=== PATIENT | male | born 1950 | race Caucasian/White ===

== ENCOUNTER 2019-09-05 11:03 | Emergency (ER) | payer MEDICARE, MEDICAID ==
[2019-09-05 12:24] LABS: CHLORIDE,CL 101 mmol/L (98-107); SODIUM,NA 138 mmol/L (136-145)
--- NOTE | 2019-09-05 12:36 | EDM.PDOC ---
ED HPI GENERAL MEDICAL PROBLEM - General Chief Complaint: General Stated Complaint: C/O Not feeling well Time Seen by Provider: 09/05/19 11:05 Source of Information: Reports: Patient, Custodial Records History Limitations: Reports: No Limitations - History of Present Illness INITIAL COMMENTS - FREE TEXT/NARRATIVE: Pt presents to ER from [place] home States he just does feel well No specific complaints NH states he was confused but in ER patient is alert and oriented No focal complaints No fever No N/V/D No chest pain No dysuria NO SOB No cough Onset: Gradual Location: Reports: Generalized - Related Data Allergies Allergy/AdvReac Type Severity Reaction Status Date / Time NSAIDS (Non-Steroidal Allergy Cannot Verified 09/05/19 11:14 Anti-Inflamma Remember Home Meds: Home Meds Acetaminophen [Tylenol Extra Strength] 1,000 mg PO BID@699,189909/05/19 [ History] Acetaminophen [Tylenol] 650 mg PO DAILY PRN 09/05/19 [History] Aspirin [Halfprin] 81 mg PO DAILY@189909/05/19 [History] Clopidogrel Bisulfate [Plavix] 75 mg PO DAILY@69909/05/19 [History] Fish Oil/[place]-3 Fatty Acids [Fish Oil 1,000 MG] 2,000 mg PO DAILY@699 [History] Ketoconazole [Ketoconazole 2%] 1 applic TOP ASDIRECTED 09/05/19 [History] Ketoconazole [Nizoral 2% Crm] 1 applic TOP ASDIRECTED PRN 09/05/19 [History] Metoprolol Succinate 50 mg PO BID@07,189909/05/19 [History] Nitroglycerin [Nitrostat] 0.4 mg SL ASDIRECTED PRN 09/05/19 [History] Omeprazole 20 mg PO DAILY@69909/05/19 [History] Sennosides/Docusate Sodium [Senna-S] 2 tab PO DAILY@189909/05/19 [History] Simvastatin 40 mg PO DAILY@189909/05/19 [History] Tamsulosin HCl [Flomax] 0.4 mg PO DAILY@189909/05/19 [History] buPROPion HCL [Wellbutrin Xl] 150 mg PO DAILY@69909/05/19 [History] buPROPion HCL [Wellbutrin Xl] 300 mg PO DAILY@0709/05/19 [History] lisinopriL [Lisinopril] 20 mg PO DAILY@69909/05/19 [History] polyethylene glycoL 3350 [MiraLAX] 17 gm PO DAILY@189909/05/19 [History] traMADol [Ultram] 50 mg PO Q6HR 09/05/19 [History] traZODone HCl [Trazodone HCl] 150 mg PO DAILY@189909/05/19 [History] Past Medical History HEENT History: Reports: Cataract, Impaired Vision, Macular Degeneration Other HEENT History: wears glasses Cardiovascular History: Reports: Angina, Bypass, CAD, High Cholesterol, Hypertension, [place] Gastrointestinal History: Reports: Chronic Constipation, GERD Genitourinary History: Reports: BPH Musculoskeletal History: Reports: Arthritis Other Musculoskeletal History: Torticollis Neurological History: Reports: CVA, TIA Psychiatric History: Reports: Depression Other Psychiatric History: [place] Dermatologic History: Reports: Seborrheic Dermatitis - Past Surgical History HEENT Surgical History: Reports: Cataract Surgery Cardiovascular Surgical History: Reports: Coronary Artery Bypass, Other (See Below) Other Cardiovascular Surgeries/Procedures: Angioplasty Social & Family History - Tobacco Use Smoking Status *Q: Current Every Day Smoker Years of Tobacco use: 25 Packs/Tins Daily: 0.5 Used Tobacco, but Quit: No Second Hand Smoke Exposure: Yes - Caffeine Use Caffeine Use: Reports: Coffee - Recreational Drug Use Recreational Drug Use: No ED ROS GENERAL - Review of Systems Review Of Systems: See Below Constitutional: Reports: No Symptoms HEENT: Reports: No Symptoms Respiratory: Reports: No Symptoms Cardiovascular: Reports: No Symptoms GI/Abdominal: Reports: No Symptoms : Reports: No Symptoms Musculoskeletal: Reports: No Symptoms Neurological: Reports: No Symptoms ED EXAM, GENERAL - Physical Exam Exam: See Below Exam Limited By: No Limitations General Appearance: Alert, No Apparent Distress Nose: Normal Inspection Throat/Mouth: Normal Oropharynx Neck: Supple Respiratory/Chest: Lungs Clear Cardiovascular: Regular Rate, Rhythm GI/Abdominal: Non-Tender Extremities: Normal Inspection Neurological: Alert, Oriented, Sensory/Motor Deficit Psychiatric: Normal Affect Course - Vital Signs Last Recorded V/S: Last Vital Signs Temp 99.0 F 09/05/19 11:38 Pulse 67 09/05/19 11:38 Resp 18 09/05/19 11:38 BP 118/63 09/05/19 11:38 Pulse Ox 96 09/05/19 11:38 - Orders/Labs/Meds Orders: Active Orders 24 hr Category Date Time Status Head wo Cont [CT] Stat Exams 09/05/19 11:38 Taken UA W/NIESHA RFLX IF INDICATED [URIN] Stat Lab 09/05/19 11:38 Ordered Labs: Laboratory Tests 09/05/19 09/05/19 Range/Units 11:45 11:45 WBC 5.8 (4.0-10.2) K/uL RBC 5.01 (4.33-5.41) M/uL Hgb 14.1 (13.1-16.8) g/dL Hct 43.7 (39.0-49.0) % MCV 87.2 (84.0-98.0) fL MCH 28.1 L (28.2-33.3) pg MCHC 32.3 (31.7-36.0) g/dL RDW 14.1 (11.2-14.1) % Plt Count 148 L (150-350) K/uL Neut % (Auto) 76.4 (45.0-80.0) % Lymph % (Auto) 10.5 (10.0-50.0) % [place] % (Auto) 12.5 (2.0-14.0) % Eos % (Auto) 0.3 (0.0-5.0) % Baso % (Auto) 0.3 (0.0-2.0) % Neut # (Auto) 4.44 (1.40-7.00) K/uL Lymph # (Auto) 0.61 (0.50-3.50) K/uL [place] # (Auto) 0.73 (0.00-1.00) K/uL Eos # (Auto) 0.02 (0.00-0.50) K/uL Baso # (Auto) 0.02 (0.00-0.20) K/uL Sodium 138 (136-145) mmol/L Potassium 4.4 (3.5-5.1) mmol/L Chloride 101 (98-107) mmol/L Carbon Dioxide 26.3 (21.0-32.0) mmol/L BUN 20 H (7-18) mg/dL Creatinine 1.14 (0.51-1.17) mg/dL Est Cr Clr Drug Dosing 57.50 mL/min Estimated GFR (MDRD) > 60 mL/min Glucose 87 (74-106) mg/dL Calcium 9.3 (8.5-10.1) mg/dL Total Bilirubin 1.0 (0.2-1.0) mg/dL AST 16 (15-37) U/L ALT 15 (12-78) U/L Alkaline Phosphatase 108 (46-116) IU/L Total Protein 7.7 (6.4-8.2) g/dL Albumin 3.5 (3.4-5.0) g/dL - Re-Assessments/Exams Free Text/Narrative Re-Assessment/Exam: 09/05/19 12:33 Pt stable in ER UA pending Pt states he is feeling better and it at usual baseline Pt desires return to [place] with urine to be collected Departure - Departure Time of Disposition: 12:45 Disposition: DC/Tfer to SNF 03 Clinical Impression: Malaise and fatigue - Discharge Information *PRESCRIPTION DRUG MONITORING PROGRAM REVIEWED*: Not Applicable *COPY OF PRESCRIPTION DRUG MONITORING REPORT IN PATIENT MEME: Not Applicable Instructions: Fatigue, Weakness, [id number] Referrals: Brook Paredes PA [Primary Care Provider] - Additional Instructions: Follow up in clinic Sepsis Event Note (ED) - Evaluation Sepsis Screening Result: No Definite Risk - Focused Exam Vital Signs: Vital Signs Temp Pulse Resp BP Pulse Ox 09/05/19 11:38 99.0 F 67 18 118/63 96 - My Orders Last 24 Hours: My Active Orders 09/05/19 11:38 Head wo Cont [CT] Stat UA W/NIESHA RFLX IF INDICATED [URIN] Stat - Assessment/Plan Last 24 Hours: My Active Orders 09/05/19 11:38 Head wo Cont [CT] Stat UA W/NIESHA RFLX IF INDICATED [URIN] Stat
== END 2019-09-05 13:35 ==
LOC: LL.ED 11:03
DX: R53.81 Other malaise (principal); R53.83 Other fatigue; I10 Essential (primary) hypertension; E78.00 Pure hypercholesterolemia, unspecified; I25.2 Old myocardial infarction; I25.10 Atherosclerotic heart disease of native coronary artery without angina pectoris; K21.9 Gastro-esophageal reflux disease without esophagitis; N40.0 Benign prostatic hyperplasia without lower urinary tract symptoms; F17.210 Nicotine dependence, cigarettes, uncomplicated; Z88.6 Allergy status to analgesic agent; Z95.1 Presence of aortocoronary bypass graft; Z79.82 Long term (current) use of aspirin; Z79.02 Long term (current) use of antithrombotics/antiplatelets; Z79.899 Other long term (current) drug therapy; Z86.73 Personal history of transient ischemic attack (TIA), and cerebral infarction without residual deficits
CPT/HCPCS: 36415; 70450; 80053; 85025; 99285-25

== ENCOUNTER 2021-01-31 17:54 | Observation (INO) | payer OTHER, MEDICARE, MEDICAID ==
[2021-01-31] MEDS ORDERED: Sodium Chloride 0.9% 10 ML Syringe FLUSH PRN (18:00)
[2021-01-31] MEDS ORDERED: Lactated Ringers 1,000 ML IV ONE ×2 (18:01→18:02)
[2021-01-31] MEDS ORDERED: cefTRIAXone 2 GM Vial IVPUSH STA (18:03)
--- NOTE | 2021-01-31 18:22 | EDM.PDOC ---
ED HPI GENERAL MEDICAL PROBLEM - General Chief Complaint: Neuro Symptoms/Deficits Stated Complaint: NON RESPONSIVE EPISODE Time Seen by Provider: 01/31/21 17:56 Source of Information: Reports: EMS, Prison Records - History of Present Illness INITIAL COMMENTS - FREE TEXT/NARRATIVE: Patient comes emergency department today from the local [place] [facility]. This patient is a long-term resident of the [facility]. HPI is primarily obtained from the EMS as well as fdc as the patient has an altered mental status. This patient has a history of mild dementia, CVA, ischemic cardiomyopathy, pacemaker, CAD, mild aortic incompetence, GERD, hypertension, dyslipidemia. Tonight the patient was without complaints earlier today according to the nurses report from the fdc. When they brought him to dinner he was found to be unresponsive per EMS report from the fdc. On EMS arrival the patient does open his eyes and move all of his extremities to command but does not have any spontaneous movement. He was maintaining his airway. His blood sugar was appropriate. He was noted to be somewhat hypotensive and bradycardic. He was without other complaints according to the EMS report. Upon arrival the patient does not verbalize. He does follow commands. Rest of the HPI is unobtainable due to the patient's presentation. Per his fdc documentation he is DNR/DNI. - Related Data Allergies Allergy/AdvReac Type Severity Reaction Status Date / Time NSAIDS (Non-Steroidal Allergy Cannot Verified 01/31/21 18:43 Anti-Inflamma Remember Home Meds: Home Meds Acetaminophen [Tylenol Extra Strength] 1,000 mg PO BID@0700,1800 09/05/19 [History] Acetaminophen [Tylenol] 650 mg PO DAILY PRN 09/05/19 [History] Aspirin [Halfprin] 81 mg PO DAILY@1800 09/05/19 [History] Clopidogrel Bisulfate [Plavix] 75 mg PO DAILY@0709/05/19 [History] Fish Oil/Horton-3 Fatty Acids [Fish Oil 1,000 MG] 2,000 mg PO DAILY@0709/05/19 [History] Ketoconazole [Ketoconazole 2%] 1 applic TOP ASDIRECTED 09/05/19 [History] Ketoconazole [Nizoral 2% Crm] 1 applic TOP ASDIRECTED PRN 09/05/19 [History] Nitroglycerin [Nitrostat] 0.4 mg SL ASDIRECTED PRN 09/05/19 [History] Omeprazole 20 mg PO DAILY@0709/05/19 [History] Sennosides/Docusate Sodium [Senna-S] 2 tab PO DAILY@1800 09/05/19 [History] Simvastatin 40 mg PO DAILY@1800 09/05/19 [History] Tamsulosin HCl [Flomax] 0.4 mg PO DAILY@1800 09/05/19 [History] buPROPion HCL [Wellbutrin Xl] 150 mg PO DAILY@0709/05/19 [History] buPROPion HCL [Wellbutrin Xl] 300 mg PO DAILY@69909/05/19 [History] lisinopriL [Lisinopril] 20 mg PO DAILY@69909/05/19 [History] polyethylene glycoL 3350 [MiraLAX] 17 gm PO DAILY PRN 09/05/19 [History] traZODone HCl [Trazodone HCl] 150 mg PO DAILY@179909/05/19 [History] Metoprolol Succinate 50 mg PO BID@0700,1800 01/31/21 [History] Mineral Oil/Petrolatum Hy-Phl [Hydrophor Oint] 1 applic TOP ASDIRECTED 01/31/21 [History] Past Medical History HEENT History: Reports: Cataract, Impaired Vision, Macular Degeneration Other HEENT History: wears glasses Cardiovascular History: Reports: Angina, Bypass, CAD, High Cholesterol, Hypertension, ID Gastrointestinal History: Reports: Chronic Constipation, GERD Genitourinary History: Reports: BPH Musculoskeletal History: Reports: Arthritis Other Musculoskeletal History: Torticollis Neurological History: Reports: CVA, TIA Psychiatric History: Reports: Depression Other Psychiatric History: [place] Dermatologic History: Reports: Seborrheic Dermatitis - Past Surgical History HEENT Surgical History: Reports: Cataract Surgery Cardiovascular Surgical History: Reports: Coronary Artery Bypass, Other (See Below) Other Cardiovascular Surgeries/Procedures: Angioplasty Social & Family History - Caffeine Use Caffeine Use: Reports: Coffee ED ROS GENERAL - Review of Systems Review Of Systems: Unable To Obtain Reason Not Obtained: Altered mental status - Physical Exam Exam: See Below Text/Narrative:: Upon arrival the patient does open his eyes to verbal stimuli. He does not track or follow. He does move all extremities equal to command. No spontaneous movement. He is not in respiratory distress. He does not verbalize. although does follow commands. GCS of 10. Exam Limited By: Altered Mental Status General Appearance: Alert (to verbal. ), Obtunded (minnimally. Maintaining airway. ) Eye Exam: Bilateral Eye: PERRL Ears: Normal External Exam Nose: Normal Inspection Throat/Mouth: No: Normal Inspection (Very dry oral mucosa. ) Head Exam: Atraumatic, Normocephalic Neck: Normal Inspection Respiratory/Chest: No Respiratory Distress, Normal Breath Sounds, Decreased Breath Sounds Cardiovascular: Normal Peripheral Pulses, Regular Rate, Rhythm, Bradycardia GI/Abdominal: Normal Bowel Sounds, Soft, Non-Tender (Male) Exam: Other (Incontinent of stool upon arrival. ) Rectal (Males) Exam: Deferred Neuro Exam (Abbreviated): Other (As above. ) Extremities: Normal Inspection, No Pedal Edema Psychiatric: Flat Affect Skin Exam: Dry, Intact, Cool Course - Vital Signs Last Recorded V/S: Last Vital Signs Temp 97.5 F 01/31/21 20:35 Pulse 63 01/31/21 20:35 Resp 17 01/31/21 20:35 BP 145/87 H 01/31/21 20:35 Pulse Ox 97 01/31/21 20:35 - Orders/Labs/Meds Orders: Active Orders 24 hr Category Date Time Status Admission Status [Patient Status] [ADT] Routine ADT 01/31/21 19:43 Active Cardiac Monitoring [RC] Q2HR Care 01/31/21 18:01 Active Chest 1V Frontal [CR] Stat Exams 01/31/21 18:00 Taken Head wo Cont [CT] Stat Exams 01/31/21 18:09 Taken CULTURE BLOOD [BC] Stat Lab 01/31/21 18:00 Ordered CULTURE BLOOD [BC] Stat Lab 01/31/21 18:00 Ordered PROCALCITONIN [REF] Stat Lab 01/31/21 18:20 Received Sodium Chloride 0.9% [Saline Flush] Med 01/31/21 18:00 Active 10 ml FLUSH ASDIRECTED PRN Blood Culture x2 Reflex Set [OM.PC] Stat Oth 01/31/21 18:00 Ordered Saline Lock Insert [OM.PC] Stat Oth 01/31/21 18:00 Ordered Severe Sepsis Onset Time [OM.PC] Stat Oth 01/31/21 18:00 Ordered Medication Orders Sodium Chloride (Sodium Chloride 0.9% 10 Ml Syringe) 10 ml FLUSH ASDIRECTED PRN PRN Reason: Keep Vein Open Labs: Laboratory Tests 01/31/21 01/31/21 01/31/21 Range/Units 18:00 18:20 18:20 WBC 5.9 (4.0-10.2) K/uL RBC 4.44 (4.33-5.41) M/uL Hgb 12.8 L (13.1-16.8) g/dL Hct 38.7 L (39.0-49.0) % MCV 87.2 (84.0-98.0) fL MCH 28.8 (28.2-33.3) pg MCHC 33.1 (31.7-36.0) g/dL RDW 13.7 (11.2-14.1) % Plt Count 152 (150-350) K/uL Neut % (Auto) 59.3 (45.0-80.0) % Lymph % (Auto) 26.4 (10.0-50.0) % [place] % (Auto) 12.1 (2.0-14.0) % Eos % (Auto) 1.7 (0.0-5.0) % Baso % (Auto) 0.5 (0.0-2.0) % Neut # (Auto) 3.49 (1.40-7.00) K/uL Lymph # (Auto) 1.55 (0.50-3.50) K/uL [place] # (Auto) 0.71 (0.00-1.00) K/uL Eos # (Auto) 0.10 (0.00-0.50) K/uL Baso # (Auto) 0.03 (0.00-0.20) K/uL PT 11.7 (9.5-12.0) SEC INR 1.2 APTT 28.2 (24.5-32.8) SEC POC VBG pH (7.31-7.41) POC VBG pCO2 (41-51) mmHg POC VBG pO2 mmHg POC VBG HCO3 (23-28) mmol/L POC Venous O2 Sat % VBG Base Excess (-(2)-3) mmol/L Sodium (136-145) mmol/L Potassium (3.5-5.1) mmol/L Chloride (98-107) mmol/L Carbon Dioxide (21.0-32.0) mmol/L POC Venous Total CO2 mmol/L Anion Gap (7-15) meq/L BUN (7-18) mg/dL Creatinine (0.51-1.17) mg/dL Est Cr Clr Drug Dosing Estimated GFR (MDRD) mL/min Glucose (70-99) mg/dL Lactic Acid (0.4-2.0) mmol/L Calcium (8.5-10.1) mg/dL Total Bilirubin (0.2-1.0) mg/dL AST (15-37) U/L ALT (12-78) U/L Alkaline Phosphatase (46-116) IU/L Troponin I High Sens (<=76) ng/L C-Reactive Protein (<=0.9) mg/dL Total Protein (6.4-8.2) g/dL Albumin (3.4-5.0) g/dL Specimen Type [place] Urine Color Yellow Urine Appearance Clear Urine pH 5.5 (5.0-9.0) Ur Specific [place] >= 1.030 (1.005-1.030) Urine Protein Negative (NEGATIVE) mg/dL Urine Glucose (UA) Negative (NEGATIVE) mg/dL Urine Ketones 15 H (NEGATIVE) mg/dL Urine Occult Blood Negative (NEGATIVE) Urine Nitrite Negative (NEGATIVE) Urine Bilirubin Small H (NEGATIVE) Urine Urobilinogen 0.2 (0.2-1.0) E.U./dL Ur Leukocyte Esterase Negative (NEGATIVE) Urine RBC 0-5 /HPF Urine WBC 0-5 /HPF Ur Epithelial Cells Not seen /LPF Urine Bacteria Rare (NONE TO FEW) /HPF Urine Mucus Rare H (NEGATIVE) /LPF SARS-CoV-2 RNA (MAXX) (NEGATIVE) SARS-CoV-2 Ag (Rapid) (NEGATIVE) 01/31/21 01/31/21 01/31/21 Range/Units 18:20 18:20 18:20 WBC (4.0-10.2) K/uL RBC (4.33-5.41) M/uL Hgb (13.1-16.8) g/dL Hct (39.0-49.0) % MCV (84.0-98.0) fL MCH (28.2-33.3) pg MCHC (31.7-36.0) g/dL RDW (11.2-14.1) % Plt Count (150-350) K/uL Neut % (Auto) (45.0-80.0) % Lymph % (Auto) (10.0-50.0) % [place] % (Auto) (2.0-14.0) % Eos % (Auto) (0.0-5.0) % Baso % (Auto) (0.0-2.0) % Neut # (Auto) (1.40-7.00) K/uL Lymph # (Auto) (0.50-3.50) K/uL [place] # (Auto) (0.00-1.00) K/uL Eos # (Auto) (0.00-0.50) K/uL Baso # (Auto) (0.00-0.20) K/uL PT (9.5-12.0) SEC INR APTT (24.5-32.8) SEC POC VBG pH 7.39 (7.31-7.41) POC VBG pCO2 40 L (41-51) mmHg POC VBG pO2 110 mmHg POC VBG HCO3 24 (23-28) mmol/L POC Venous O2 Sat 98 % VBG Base Excess -1 (-(2)-3) mmol/L Sodium 138 (136-145) mmol/L Potassium 4.0 (3.5-5.1) mmol/L Chloride 103 (98-107) mmol/L Carbon Dioxide 22.4 (21.0-32.0) mmol/L POC Venous Total CO2 25 mmol/L Anion Gap 12.6 (7-15) meq/L BUN 24 H (7-18) mg/dL Creatinine 1.47 H (0.51-1.17) mg/dL Est Cr Clr Drug Dosing TNP Estimated GFR (MDRD) 47 mL/min Glucose 122 H (70-99) mg/dL Lactic Acid 1.9 (0.4-2.0) mmol/L Calcium 8.5 (8.5-10.1) mg/dL Total Bilirubin 0.4 (0.2-1.0) mg/dL AST 14 L (15-37) U/L ALT 8 L (12-78) U/L Alkaline Phosphatase 76 (46-116) IU/L Troponin I High Sens 14 (<=76) ng/L C-Reactive Protein 0.7 (<=0.9) mg/dL Total Protein 6.6 (6.4-8.2) g/dL Albumin 3.3 L (3.4-5.0) g/dL Specimen Type Urine Color Urine Appearance Urine pH (5.0-9.0) Ur Specific [place] (1.005-1.030) Urine Protein (NEGATIVE) mg/dL Urine Glucose (UA) (NEGATIVE) mg/dL Urine Ketones (NEGATIVE) mg/dL Urine Occult Blood (NEGATIVE) Urine Nitrite (NEGATIVE) Urine Bilirubin (NEGATIVE) Urine Urobilinogen (0.2-1.0) E.U./dL Ur Leukocyte Esterase (NEGATIVE) Urine RBC /HPF Urine WBC /HPF Ur Epithelial Cells /LPF Urine Bacteria (NONE TO FEW) /HPF Urine Mucus (NEGATIVE) /LPF SARS-CoV-2 RNA (MAXX) (NEGATIVE) SARS-CoV-2 Ag (Rapid) (NEGATIVE) 01/31/21 01/31/21 Range/Units 18:30 18:30 WBC (4.0-10.2) K/uL RBC (4.33-5.41) M/uL Hgb (13.1-16.8) g/dL Hct (39.0-49.0) % MCV (84.0-98.0) fL MCH (28.2-33.3) pg MCHC (31.7-36.0) g/dL RDW (11.2-14.1) % Plt Count (150-350) K/uL Neut % (Auto) (45.0-80.0) % Lymph % (Auto) (10.0-50.0) % [place] % (Auto) (2.0-14.0) % Eos % (Auto) (0.0-5.0) % Baso % (Auto) (0.0-2.0) % Neut # (Auto) (1.40-7.00) K/uL Lymph # (Auto) (0.50-3.50) K/uL [place] # (Auto) (0.00-1.00) K/uL Eos # (Auto) (0.00-0.50) K/uL Baso # (Auto) (0.00-0.20) K/uL PT (9.5-12.0) SEC INR APTT (24.5-32.8) SEC POC VBG pH (7.31-7.41) POC VBG pCO2 (41-51) mmHg POC VBG pO2 mmHg POC VBG HCO3 (23-28) mmol/L POC Venous O2 Sat % VBG Base Excess (-(2)-3) mmol/L Sodium (136-145) mmol/L Potassium (3.5-5.1) mmol/L Chloride (98-107) mmol/L Carbon Dioxide (21.0-32.0) mmol/L POC Venous Total CO2 mmol/L Anion Gap (7-15) meq/L BUN (7-18) mg/dL Creatinine (0.51-1.17) mg/dL Est Cr Clr Drug Dosing Estimated GFR (MDRD) mL/min Glucose (70-99) mg/dL Lactic Acid (0.4-2.0) mmol/L Calcium (8.5-10.1) mg/dL Total Bilirubin (0.2-1.0) mg/dL AST (15-37) U/L ALT (12-78) U/L Alkaline Phosphatase (46-116) IU/L Troponin I High Sens (<=76) ng/L C-Reactive Protein (<=0.9) mg/dL Total Protein (6.4-8.2) g/dL Albumin (3.4-5.0) g/dL Specimen Type Urine Color Urine Appearance Urine pH (5.0-9.0) Ur Specific [place] (1.005-1.030) Urine Protein (NEGATIVE) mg/dL Urine Glucose (UA) (NEGATIVE) mg/dL Urine Ketones (NEGATIVE) mg/dL Urine Occult Blood (NEGATIVE) Urine Nitrite (NEGATIVE) Urine Bilirubin (NEGATIVE) Urine Urobilinogen (0.2-1.0) E.U./dL Ur Leukocyte Esterase (NEGATIVE) Urine RBC /HPF Urine WBC /HPF Ur Epithelial Cells /LPF Urine Bacteria (NONE TO FEW) /HPF Urine Mucus (NEGATIVE) /LPF SARS-CoV-2 RNA (MAXX) Negative (NEGATIVE) SARS-CoV-2 Ag (Rapid) Negative (NEGATIVE) Meds: Medications Generic Name Dose Route Start Last Admin Trade Name Freq PRN Reason Stop Dose Admin Sodium Chloride 10 ml 11/05/21 18:00 Sodium Chloride 0.9% 10 Ml Syringe FLUSH ASDIRECTED PRN Keep Vein Open Discontinued Medications Generic Name Dose Route Start Last Admin Trade Name Betty PRN Reason Stop Dose Admin Ceftriaxone Sodium 2 gm 01/31/21 18:03 01/31/21 18:26 Ceftriaxone 2 Gm Vial IVPUSH 01/31/21 18:04 2 gm NOW STA Administration Lactated Ringer's 1,000 mls @ 1,000 mls/hr 01/31/21 18:01 01/31/21 18:03 Ringers, Lactated IV 01/31/21 19:00 1,000 mls/hr .BOLUS ONE Administration Lactated Ringer's 1,000 mls @ 1,000 mls/hr 01/31/21 18:02 01/31/21 18:27 Ringers, Lactated IV 01/31/21 19:01 1,000 mls/hr .BOLUS ONE Administration - Radiology Interpretation Free Text/Narrative:: Head CT reviewed contemporaneously by myself shows no acute intercranial bleed mass-effect or calvarial fracture. Radiological reviewed is called to me over the phone and told to be normal without any acute findings. - Re-Assessments/Exams Free Text/Narrative Re-Assessment/Exam: 01/31/21 18:31 Patient upon presentation has an altered mental status and is hypotensive I have concerns for severe sepsis. Sepsis 1 hour bundle initiated. Blood cultures x2. LR 2 L wide open. Ceftriaxone 2 g IV push. 01/31/21 18:34 Reviewing his Epic through [facility] I am unable to see his previous EKG. Last Echo 02/09/19 with an EF of 30-35%, mild aortic insufficiency. His laboratory evaluation is rather unremarkable. He does have a mild elevation of his creatinine at 1.47 but it appears his creatinine baseline is 1.38 about 1 month ago. While he was in the emergency department he did start to become more alert spontaneously. He was able to speak in full sentences. His NIH stroke scale was 2 primarily because he was confused on the date and where he was but this could be somewhat due to his baseline and after discussion with the fdc this is typical for him. I do not see any signs of an affection or sepsis at this time. His blood pressure improved after the fluid resuscitation. He could be just dealing with some mild dehydration at this time. Although he is in the basic care at the fdc and I think it will be best if we observe him overnight for any pathology. We will repeat his troponin. His family was updated. Departure - Departure Time of Disposition: 20:00 Disposition: Refer to Observation Clinical Impression: Episode of unresponsiveness Hypotension Qualifiers: Hypotension type: hypotension due to hypovolemia Qualified Code(s): I95.89 - Other hypotension - Discharge Information Sepsis Event Note (ED) - Evaluation Sepsis Screening Result: No Definite Risk - Focused Exam Vital Signs: Vital Signs Temp Pulse Resp BP Pulse Ox 01/31/21 17:55 97.8 F 60 20 89/59 L 99 - Problem List & Annotations (1) Episode of unresponsiveness SNOMED Code(s): 472226082 Code(s): R41.89 - OTH SYMPTOMS AND SIGNS W COGNITIVE FUNCTIONS AND AWARENESS Status: Acute Current Visit: Yes Annotation/Comment:: I am unsure of the cause of the patient's episode of unresponsiveness that was reported. He was alert to verbal he was noted to be somewhat bradycardic and hypotensive. Shortly after arrival after fluid resuscitation the patient returned back to his baseline. We will monitor closely. His work-up is negative at this time. We will see if we are able to interrogate his pacemaker. (2) Hypotension SNOMED Code(s): 49519989 Code(s): I95.9 - HYPOTENSION, UNSPECIFIED Status: Acute Current Visit: Yes Annotation/Comment:: Patient initially was hypotensive on the arrival to the emergency department with a systolic blood pressure of 89. He received 2 L of lactated Ringer's for the concerns of sepsis with the presentation of hypotension and altered mental status. Sepsis is not identified at this time. Blood cultures are pending. No other sites of infection are noted. This could be related to mild dehydration or medication induced but this is clearly h ypothetical on the medication aspect as he has had no recent change in his medication. We will monitor him closely. Slowly hydrate him overnight. Qualifiers: Hypotension type: hypotension due to hypovolemia Qualified Code(s): I95.89 - Other hypotension; E86.1 - Hypovolemia (3) CKD (chronic kidney disease) stage 3, GFR 30-59 ml/min SNOMED Code(s): 435975242 Code(s): N18.30 - CHRONIC KIDNEY DISEASE, STAGE 3 UNSPECIFIED Status: Acute Current Visit: Yes Annotation/Comment:: Baseline creatinine 1.38 about a month ago, 1.47 today. Does not meet criteria for acute kidney injury at this [facility]. We will hydrate him gently throughout the night and monitor closely. No peripheral edema. Qualifiers: Chronic kidney disease stage 3 subtype: stage 3a (GFR 45-59) Qualified Code(s): N18.31 - Chronic kidney disease, stage 3a (4) Ischemic cardiomyopathy SNOMED Code(s): 738056411 Code(s): I25.5 - ISCHEMIC CARDIOMYOPATHY Status: Acute Current Visit: Yes Annotation/Comment:: Ejection fraction echo 30-35%. With mild aortic insufficiency. No signs of congestive heart failure at this time. Troponin has been normal. EKG is unremarkable. No signs of ACS continue to monitor. (5) Mild dementia SNOMED Code(s): 48770896 Code(s): F03.90 - UNSPECIFIED DEMENTIA WITHOUT BEHAVIORAL DISTURBANCE Status: Acute Current Visit: Yes Annotation/Comment:: He is at baseline according to the fdc. We will monitor closely continue home therapies. He is only confused to the date and where he is at (6) Coronary artery disease involving [place] coronary artery of [place] heart SNOMED Code(s): 612271500 Code(s): I25.10 - ATHSCL HEART DISEASE OF [place] CORONARY ARTERY W/O ANG PCTRS Status: Acute Current Visit: Yes Annotation/Comment:: No signs of ACS at this time. Normal troponin normal EKG. We will continue to monitor as well as use telemetry. (7) Hypertension SNOMED Code(s): 28833334 Code(s): I10 - ESSENTIAL (PRIMARY) HYPERTENSION Status: Acute Current Visit: Yes Annotation/Comment:: He was initially hypotension on the arrival to the emergency department. He responded appropriately with fluids. We will continue his metoprolol and lisinopril at this time and monitor his blood pressure closely. (8) Mild AI (aortic incompetence) SNOMED Code(s): 125102628 Code(s): I35.1 - NONRHEUMATIC AORTIC (VALVE) INSUFFICIENCY Status: Acute Current Visit: Yes Annotation/Comment:: No signs of failure or strain at this time. Continue to monitor (9) GERD (gastroesophageal reflux disease) SNOMED Code(s): 450885707 Code(s): K21.9 - GASTRO-ESOPHAGEAL REFLUX DISEASE WITHOUT ESOPHAGITIS Status: Acute Current Visit: Yes Annotation/Comment:: Continue home omeprazole. No acute concerns. 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 He is a DNR/DNI. No acute endings on the CT scan. His NIH stroke scale is 2 but this is most likely chronic for him with his history of dementia. Monitor closely (12) Tobacco use SNOMED Code(s): 151326011 Code(s): Z72.0 - TOBACCO USE Status: Acute Current Visit: Yes Annota tion/Comment:: History of heavy tobacco use. Habitrol patch. - Problem List Review Problem List Initiated/Reviewed/Updated: Yes - My Orders Last 24 Hours: My Active Orders 01/31/21 18:00 Chest 1V Frontal [CR] Stat CULTURE BLOOD [BC] Stat CULTURE BLOOD [BC] Stat Sodium Chloride 0.9% [Saline Flush] 10 ml FLUSH ASDIRECTED PRN Blood Culture x2 Reflex Set [OM.PC] Stat Saline Lock Insert [OM.PC] Stat Severe Sepsis Onset Time [OM.PC] Stat 01/31/21 18:01 Cardiac Monitoring [RC] Q2HR 01/31/21 18:09 Head wo Cont [CT] Stat 01/31/21 18:20 PROCALCITONIN [REF] Stat 01/31/21 19:43 Admission Status [Patient Status] [ADT] Routine - Assessment/Plan Admission H&P: Please use this note as an admission H&P Last 24 Hours: My Active Orders 01/31/21 18:00 Chest 1V Frontal [CR] Stat CULTURE BLOOD [BC] Stat CULTURE BLOOD [BC] Stat Sodium Chloride 0.9% [Saline Flush] 10 ml FLUSH ASDIRECTED PRN Blood Culture x2 Reflex Set [OM.PC] Stat Saline Lock Insert [OM.PC] Stat Severe Sepsis Onset Time [OM.PC] Stat 01/31/21 18:01 Cardiac Monitoring [RC] Q2HR 01/31/21 18:09 Head wo Cont [CT] Stat 01/31/21 18:20 PROCALCITONIN [REF] Stat 01/31/21 19:43 Admission Status [Patient Status] [ADT] Routine Assessment:: Assessment/plan. 1. Episode of unresponsiveness. Neuro exams repeated. Telemetry 2. Hypotension-? dehdyration Gentle hydration throughout the night. LR 75mls/hr BP in ED arrival 89/59 3. CKD Stage 3. Baseline Creat 1.38 01/09/21. 1.47 today Hydration and repeat labs in the morning. 4. Mild Dehydration. As per #2. 5. Tobacco use Nicotene patch 14 Chronic Disease state. Ischemic cardiomyopathy Repeat troponin in the morning telemetry Continue home meds metoprolol lisinopril Plavix ASA Mild dementia Monitor. Trazodone and Wellbutrin home therapies. Atherosclerotic heart disease of [place] coronary artery without angina pectoris Continue home metoprolol lisinopril Essential hypertension Responsive to fluid in the emergency department. We will monitor closely. Continue metoprolol lisinopril Nonrheumatic aortic valve insufficiency. EF 30 to 35% mild aortic insufficiency. Continue previous therapy monitor fluid resuscitation and vitals closely Gastroesophageal reflux disease Continue home omeprazole Dyslipidemia Continue home simvastatin Cerebral infarction due to embolism of unspecified vertebral artery. Continue ASA and plavix. VTE: Short Stay Teds low risk. Plavix asa Sepsis: no signs of sepsis at this time. continue to monitor. Code Status: DNR/DNI I do not anticipate more than 48 hours of observation for this patient. It is unclear of the cause of his altered mental status or unresponsive episode that was identified at the [facility]. It is not clinically evident at this time. His blood pressure did improve with fluid resuscitation. As he is in the basic care setting at the fdc I think that is appropriate at this time to ensure that something does not become clinically evident. We will reevaluate this in the morning. Gently hydrate him over the night. His family has been updated.
--- NOTE | 2021-01-31 18:33 | PCM.EKG ---
#1 Interpretation EKG Date: 01/31/21 Time: 18:19 Rhythm: Other (Sinus neri) Rate (Beats/Min): 58 [place]: Normal P-Wave: Present QRS: Normal ST-T: Normal QT: Normal Comparison: NA - No Prior EKG (T wave inversion in I, V3,V4,V5,V6.)
[2021-01-31 19:04] LABS: ANION GAP 12.6 meq/L (7-15); CHLORIDE,CL 103 mmol/L (98-107); SODIUM,NA 138 mmol/L (136-145)
[2021-01-31 19:16] LABS: PTT,PARTIAL THROMBOPLSTIN TIME 28.2 SEC (24.5-32.8)
[2021-01-31] MEDS ORDERED: Nicotine 14 MG/24 Hr Patch TRDERM SCH (21:45)
[2021-01-31] MEDS ORDERED: Lactated Ringers 1,000 ML IV SCH (21:45)
[2021-01-31] MEDS ORDERED: traZODone 50 MG Tab PO ONE (22:36)
[2021-02-01 07:50] LABS: ANION GAP 6.8 meq/L (7-15)
[2021-02-01] MEDS ORDERED: Metoprolol Succinate 50 MG Tab.ER PO STA (09:16)
[2021-02-01] MEDS ORDERED: buPROPion 150 MG Tab.ER PO STA ×2 (09:16)
[2021-02-01] MEDS ORDERED: Clopidogrel 75 MG Tab PO STA (09:16)
[2021-02-01] MEDS ORDERED: Omeprazole 20 MG Cap.CR PO STA (09:16)
[2021-02-01] MEDS ORDERED: Lisinopril 20 MG Tab PO STA (09:16)
--- NOTE | 2021-02-01 09:52 | PCM.DCSUM1 ---
Discharge Summary - Discharge Data Discharge Date: 02/01/21 Discharge Disposition: DC/Tfer to Intermediate [facility] 61 Condition: Good - Referral to Home Health Primary Care Physician: PCP None - Discharge Diagnosis/Problem(s) (1) Episode of unresponsiveness SNOMED Code(s): 781274667 ICD Code: R41.89 - OTH SYMPTOMS AND SIGNS W COGNITIVE FUNCTIONS AND AWARENESS Status: Acute Current Visit: Yes Problem Details: He has not had any episodes of altered mental status throughout the night. He does have an implantable loop recorder which we will have interrogated by cardiology next available. He is alert appropriate there is no confusion this morning. His heart rate has been running stable at 60 throughout the night. His blood pressure been appropriate. Unsure of the cause of his episode of unresponsiveness or syncope. We will discharge him back to the basic skilled facility at the [facility]. (2) Hypotension SNOMED Code(s): 42643779 ICD Code: I95.9 - HYPOTENSION, UNSPECIFIED Status: Acute Current Visit: Yes Problem Details: He has been receiving fluids throughout the night. His blood pressure this morning is 144/83. During the night 145/87. This is in the presence of him receiving his home medications as well. I think the patient was just a little bit dehydrated and that could have been the cause of his syncope. He has had no hypotension. There is no signs of infection. We will have this continued to be monitored. Qualifiers: Hypotension type: hypotension due to hypovolemia Qualified Code(s): I95.89 - Other hypotension; E86.1 - Hypovolemia (3) CKD (chronic kidney disease) stage 3, GFR 30-59 ml/min SNOMED Code(s): 994901080 ICD Code: N18.30 - CHRONIC KIDNEY DISEASE, STAGE 3 UNSPECIFIED Status: Acute Current Visit: Yes Problem Details: Baseline kidney function of 1.38, 1.47 on admission, 1.20 this am after gentle hydration and fluid resuscitation in the emergency department. Qualifiers: Chronic kidney disease stage 3 subtype: stage 3a (GFR 45-59) Qualified Code(s): N18.31 - Chronic kidney disease, stage 3a (4) Ischemic cardiomyopathy SNOMED Code(s): 257649284 ICD Code: I25.5 - ISCHEMIC CARDIOMYOPATHY Status: Chronic Current Visit: Yes Problem Details: Ejection fraction echo 30-35%. With mild aortic insufficiency. No signs of congestive heart failure at this time. Troponin has been normal. EKG is unremarkable. No signs of ACS continue to monitor. Repeat troponin this morning is normal (5) Mild dementia SNOMED Code(s): 72856707 ICD Code: F03.90 - UNSPECIFIED DEMENTIA WITHOUT BEHAVIORAL DISTURBANCE Status: Chronic Current Visit: Yes Problem Details: He is at baseline according to the [facility]. We will monitor closely continue home therapies. He is only confused to the date and where he is at (6) Coronary artery disease involving [place] coronary artery of [place] heart SNOMED Code(s): 475699194 ICD Code: I25.10 - ATHSCL HEART DISEASE OF [place] CORONARY ARTERY W/O ANG PCTRS Status: Chronic Current Visit: Yes Problem Details: No signs of ACS at this time. Normal troponin normal EKG. We will continue to monitor as well as use telemetry. (7) Hypertension SNOMED Code(s): 47200053 ICD Code: I10 - ESSENTIAL (PRIMARY) HYPERTENSION Status: Chronic Current Visit: Yes Problem Details: He was initially hypotension on the arrival to the emergency department. He responded appropriately with fluids. We will continue his metoprolol and lisinopril at this time and monitor his blood pressure closel y. (8) Mild AI (aortic incompetence) SNOMED Code(s): 450525733 ICD Code: I35.1 - NONRHEUMATIC AORTIC (VALVE) INSUFFICIENCY Status: Chronic Current Visit: Yes Problem Details: No signs of failure or strain at this time. Continue to monitor (9) GERD (gastroesophageal reflux disease) SNOMED Code(s): 123800247 ICD Code: K21.9 - GASTRO-ESOPHAGEAL REFLUX DISEASE WITHOUT ESOPHAGITIS Status: Chronic Current Visit: Yes Problem Details: Continue home omeprazole. No acute concerns. 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 He is a DNR/DNI. No acute endings on the CT scan. His NIH stroke scale is 2 but this is most likely chronic for him with his history of dementia. Monitor closely (12) Tobacco use SNOMED Code(s): 842287333 ICD Code: Z72.0 - TOBACCO USE Status: Chronic Current Visit: Yes Problem Details: History of heavy tobacco use. Habitrol patch. (13) Status post placement of implantable loop recorder SNOMED Code(s): 706967182, 867073333, 862072462 ICD Code: Z95.818 - PRESENCE OF OTHER CARDIAC IMPLANTS AND GRAFTS Status: Chronic Current Visit: Yes - Patient Summary/Data Hospital Course: Patient was admitted into the hospital overnight for observation following an episode of either syncope or unresponsiveness at the basic skilled facility at the [facility] yesterday. Upon arrival to the ER the patient alerted to verbal but did not verbalize. He was noted to be hypotensive and somewhat bradycardic. Concerns for sepsis. He received fluid resuscitation as well as antibiotics and cultures. He quickly improved after the fluid resuscitation of 2 L of lactated ringer. He was alert appropriate. His vital signs stabilized. He had no signs of sepsis. He continued a heart rate in the 60s. He was incontinent of urine and stool upon arrival. Patient had no complaints. He had an NIH stroke scale of 2. The rest of his laboratory evaluation is unremarkable. There is no signs of sepsis or infection at this time. He was monitored closely overnight in the hospital. In the morning he was without complaints. His all signs were stable. I am unsure of what the cause of his unresponsive or syncopal episode was. I question if this is not due to dehydration as he responded quite well to fluid resuscitation. He is back to baseline without complaints today. We will di scharge him back to the basic skilled facility at the [facility] here in [place]. We will have him follow-up with his cardiology on Wednesday to see if they are able to interrogate his loop recorder to see if he had a bradycardic episode. - Patient Instructions Diet: Heart Healthy Diet, Drink 8-10+ Glasses/Day Other/Special Instructions: Back to the [facility] today. Continue all therapies and medications as previous. Encourage increased fluid intake at least 10 glasses of water a day. Contact his cardiology group on Wednesday and get a interrogation of his implantable loop recorder. Contact his dentist as his dentures are nonfitting. Notify his PCP of the visit in the hospital. - Discharge Plan *PRESCRIPTION DRUG MONITORING PROGRAM REVIEWED*: Not Applicable *COPY OF PRESCRIPTION DRUG MONITORING REPORT IN PATIENT MEME: Not Applicable Home Medications: Home Meds Acetaminophen [Tylenol Extra Strength] 1,000 mg PO BID@0700,1800 09/05/19 [History] Acetaminophen [Tylenol] 650 mg PO DAILY PRN 09/05/19 [History] Aspirin [Halfprin] 81 mg PO DAILY@179909/05/19 [History] Clopidogrel Bisulfate [Plavix] 75 mg PO DAILY@69909/05/19 [History] Fish Oil/[place]-3 Fatty Acids [Fish Oil 1,000 MG] 2,000 mg PO DAILY@69909/05/19 [History] Ketoconazole [Nizoral 2% Crm] 1 applic TOP ASDIRECTED PRN 09/05/19 [History] Ketoconazole [Nizoral 2% Shampoo] 1 applic TOP ASDIRECTED 09/05/19 [History] Nitroglycerin [Nitrostat] 0.4 mg SL ASDIRECTED PRN 09/05/19 [History] Omeprazole 20 mg PO DAILY@69909/05/19 [History] Sennosides/Docusate Sodium [Senna-S] 2 tab PO DAILY@179909/05/19 [History] Simvastatin 40 mg PO DAILY@179909/05/19 [History] Tamsulosin HCl [Flomax] 0.4 mg PO DAILY@179909/05/19 [History] buPROPion HCL [Wellbutrin Xl] 150 mg PO DAILY@69909/05/19 [History] buPROPion HCL [Wellbutrin Xl] 300 mg PO DAILY@69909/05/19 [History] lisinopriL [Lisinopril] 20 mg PO DAILY@69909/05/19 [History] polyethylene glycoL 3350 [MiraLAX] 17 gm PO DAILY PRN 09/05/19 [History] traZODone HCl [Trazodone HCl] 150 mg PO DAILY@179909/05/19 [History] Metoprolol Succinate 50 mg PO BID@0700,1800 01/31/21 [History] Mineral Oil/Petrolatum Hy-Phl [Hydrophor Oint] 1 applic TOP ASDIRECTED 01/31/21 [History] Forms: ED Department Discharge Referrals: PCP,None [Primary Care Provider] - - Discharge Summary/Plan Comment DC Time >30 min.: No Total # of Minutes for Discharge Time: 25 - General Info Date of Service: 02/01/21 Admission Dx/Problem (Free Text: Syncopal episode Bradycardia Hypotension Subjective Update: The patient rested well throughout the night. He does recall us telling him what happened yesterday. He is able to tell me that he passed out when he went to dinner. He relates that yesterday he was without complaints. He remembers the ambulance ride into the hospital. The only complaint he has today is that his dentures are a little bit loose on the bottom which is typical for him. He has no other complaints. He ate breakfast well. Functional Status: Reports: Pain Controlled, Tolerating Diet. Denies: New Symptoms - Review of Systems General: Reports: No Symptoms HEENT: Reports: No Symptoms Pulmonary: Reports: No Symptoms Cardiovascular: Reports: No Symptoms Gastrointestinal: Reports: No Symptoms Genitourinary: Reports: No Symptoms Musculoskeletal: Reports: No Symptoms Skin: Reports: No Symptoms Neurological: Reports: No Symptoms Psychiatric: Reports: No Symptoms - Patient Data Vitals - Most Recent: Last Vital Signs Temp 98.6 F 02/01/21 07:42 Pulse 55 L 02/01/21 07:42 Resp 24 H 02/01/21 07:42 BP 144/83 H 02/01/21 07:42 Pulse Ox 97 02/01/21 07:42 Weight - Most Recent: 164 lb 7.437 oz I&O - Last 24 hours: Intake & Output 01/31/21 02/01/21 02/01/21 22:59 06:59 14:59 Intake Total 1999 505 720 Balance 1999 505 720 Lab Results - Last 24 hrs: Laboratory Results - last 24 hr 01/31/21 01/31/21 01/31/21 Range/Units 18:00 18:20 18:20 WBC 5.9 (4.0-10.2) K/uL RBC 4.44 (4.33-5.41) M/uL Hgb 12.8 L (13.1-16.8) g/dL Hct 38.7 L (39.0-49.0) % MCV 87.2 (84.0-98.0) fL MCH 28.8 (28.2-33.3) pg MCHC 33.1 (31.7-36.0) g/dL RDW 13.7 (11.2-14.1) % Plt Count 152 (150-350) K/uL Neut % (Auto) 59.3 (45.0-80.0) % Lymph % (Auto) 26.4 (10.0-50.0) % [place] % (Auto) 12.1 (2.0-14.0) % Eos % (Auto) 1.7 (0.0-5.0) % Baso % (Auto) 0.5 (0.0-2.0) % Neut # (Auto) 3.49 (1.40-7.00) K/uL Lymph # (Auto) 1.55 (0.50-3.50) K/uL [place] # (Auto) 0.71 (0.00-1.00) K/uL Eos # (Auto) 0.10 (0.00-0.50) K/uL Baso # (Auto) 0.03 (0.00-0.20) K/uL PT 11.7 (9.5-12.0) SEC INR 1.2 APTT 28.2 (24.5-32.8) SEC POC VBG pH (7.31-7.41) POC VBG pCO2 (41-51) mmHg POC VBG pO2 mmHg POC VBG HCO3 (23-28) mmol/L POC Venous O2 Sat % VBG Base Excess (-(2)-3) mmol/L Sodium (136-145) mmol/L Potassium (3.5-5.1) mmol/L Chloride (98-107) mmol/L Carbon Dioxide (21.0-32.0) mmol/L POC Venous Total CO2 mmol/L Anion Gap (7-15) meq/L BUN (7-18) mg/dL Creatinine (0.51-1.17) mg/dL Est Cr Clr Drug Dosing Estimated GFR (MDRD) mL/min Glucose (70-99) mg/dL Lactic Acid (0.4-2.0) mmol/L Calcium (8.5-10.1) mg/dL Total Bilirubin (0.2-1.0) mg/dL AST (15-37) U/L ALT (12-78) U/L Alkaline Phosphatase (46-116) IU/L Troponin I High Sens (<=76) ng/L C-Reactive Protein (<=0.9) mg/dL Total Protein (6.4-8.2) g/dL Albumin (3.4-5.0) g/dL Specimen Type [place] Urine Color Yellow Urine Appearance Clear Urine pH 5.5 (5.0-9.0) Ur Specific [place] >= 1.030 (1.005-1.030) Urine Protein Negative (NEGATIVE) mg/dL Urine Glucose (UA) Negative (NEGATIVE) mg/dL Urine Ketones 15 H (NEGATIVE) mg/dL Urine Occult Blood Negative (NEGATIVE) Urine Nitrite Negative (NEGATIVE) Urine Bilirubin Small H (NEGATIVE) Urine Urobilinogen 0.2 (0.2-1.0) E.U./dL Ur Leukocyte Esterase Negative (NEGATIVE) Urine RBC 0-5 /HPF Urine WBC 0-5 /HPF Ur Epithelial Cells Not seen /LPF Urine Bacteria Rare (NONE TO FEW) /HPF Urine Mucus Rare H (NEGATIVE) /LPF SARS-CoV-2 RNA (MAXX) (NEGATIVE) SARS-CoV-2 Ag (Rapid) (NEGATIVE) 01/31/21 01/31/21 01/31/21 Range/Units 18:20 18:20 18:20 WBC (4.0-10.2) K/uL RBC (4.33-5.41) M/uL Hgb (13.1-16.8) g/dL Hct (39.0-49.0) % MCV (84.0-98.0) fL MCH (28.2-33.3) pg MCHC (31.7-36.0) g/dL RDW (11.2-14.1) % Plt Count (150-350) K/uL Neut % (Auto) (45.0-80.0) % Lymph % (Auto) (10.0-50.0) % [place] % (Auto) (2.0-14.0) % Eos % (Auto) (0.0-5.0) % Baso % (Auto) (0.0-2.0) % Neut # (Auto) (1.40-7.00) K/uL Lymph # (Auto) (0.50-3.50) K/uL [place] # (Auto) (0.00-1.00) K/uL Eos # (Auto) (0.00-0.50) K/uL Baso # (Auto) (0.00-0.20) K/uL PT (9.5-12.0) SEC INR APTT (24.5-32.8) SEC POC VBG pH 7.39 (7.31-7.41) POC VBG pCO2 40 L (41-51) mmHg POC VBG pO2 110 mmHg POC VBG HCO3 24 (23-28) mmol/L POC Venous O2 Sat 98 % VBG Base Excess -1 (-(2)-3) mmol/L Sodium 138 (136-145) mmol/L Potassium 4.0 (3.5-5.1) mmol/L Chloride 103 (98-107) mmol/L Carbon Dioxide 22.4 (21.0-32.0) mmol/L POC Venous Total CO2 25 mmol/L Anion Gap 12.6 (7-15) meq/L BUN 24 H (7-18) mg/dL Creatinine 1.47 H (0.51-1.17) mg/dL Est Cr Clr Drug Dosing TNP Estimated GFR (MDRD) 47 mL/min Glucose 122 H (70-99) mg/dL Lactic Acid 1.9 (0.4-2.0) mmol/L Calcium 8.5 (8.5-10.1) mg/dL Total Bilirubin 0.4 (0.2-1.0) mg/dL AST 14 L (15-37) U/L ALT 8 L (12-78) U/L Alkaline Phosphatase 76 (46-116) IU/L Troponin I High Sens 14 (<=76) ng/L C-Reactive Protein 0.7 (<=0.9) mg/dL Total Protein 6.6 (6.4-8.2) g/dL Albumin 3.3 L (3.4-5.0) g/dL Specimen Type Urine Color Urine Appearance Urine pH (5.0-9.0) Ur Specific [place] (1.005-1.030) Urine Protein (NEGATIVE) mg/dL Urine Glucose (UA) (NEGATIVE) mg/dL Urine Ketones (NEGATIVE) mg/dL Urine Occult Blood (NEGATIVE) Urine Nitrite (NEGATIVE) Urine Bilirubin (NEGATIVE) Urine Urobilinogen (0.2-1.0) E.U./dL Ur Leukocyte Esterase (NEGATIVE) Urine RBC /HPF Urine WBC /HPF Ur Epithelial Cells /LPF Urine Bacteria (NONE TO FEW) /HPF Urine Mucus (NEGATIVE) /LPF SARS-CoV-2 RNA (MAXX) (NEGATIVE) SARS-CoV-2 Ag (Rapid) (NEGATIVE) 01/31/21 01/31/21 01/31/21 Range/Units 18:30 18:30 21:25 WBC (4.0-10.2) K/uL RBC (4.33-5.41) M/uL Hgb (13.1-16.8) g/dL Hct (39.0-49.0) % MCV (84.0-98.0) fL MCH (28.2-33.3) pg MCHC (31.7-36.0) g/dL RDW (11.2-14.1) % Plt Count (150-350) K/uL Neut % (Auto) (45.0-80.0) % Lymph % (Auto) (10.0-50.0) % [place] % (Auto) (2.0-14.0) % Eos % (Auto) (0.0-5.0) % Baso % (Auto) (0.0-2.0) % Neut # (Auto) (1.40-7.00) K/uL Lymph # (Auto) (0.50-3.50) K/uL [place] # (Auto) (0.00-1.00) K/uL Eos # (Auto) (0.00-0.50) K/uL Baso # (Auto) (0.00-0.20) K/uL PT (9.5-12.0) SEC INR APTT (24.5-32.8) SEC POC VBG pH (7.31-7.41) POC VBG pCO2 (41-51) mmHg POC VBG pO2 mmHg POC VBG HCO3 (23-28) mmol/L POC Venous O2 Sat % VBG Base Excess (-(2)-3) mmol/L Sodium (136-145) mmol/L Potassium (3.5-5.1) mmol/L Chloride (98-107) mmol/L Carbon Dioxide (21.0-32.0) mmol/L POC Venous Total CO2 mmol/L Anion Gap (7-15) meq/L BUN (7-18) mg/dL Creatinine (0.51-1.17) mg/dL Est Cr Clr Drug Dosing Estimated GFR (MDRD) mL/min Glucose (70-99) mg/dL Lactic Acid (0.4-2.0) mmol/L Calcium (8.5-10.1) mg/dL Total Bilirubin (0.2-1.0) mg/dL AST (15-37) U/L ALT (12-78) U/L Alkaline Phosphatase (46-116) IU/L Troponin I High Sens 16 (<=76) ng/L C-Reactive Protein (<=0.9) mg/dL Total Protein (6.4-8.2) g/dL Albumin (3.4-5.0) g/dL Specimen Type Urine Color Urine Appearance Urine pH (5.0-9.0) Ur Specific [place] (1.005-1.030) Urine Protein (NEGATIVE) mg/dL Urine Glucose (UA) (NEGATIVE) mg/dL Urine Ketones (NEGATIVE) mg/dL Urine Occult Blood (NEGATIVE) Urine Nitrite (NEGATIVE) Urine Bilirubin (NEGATIVE) Urine Urobilinogen (0.2-1.0) E.U./dL Ur Leukocyte Esterase (NEGATIVE) Urine RBC /HPF Urine WBC /HPF Ur Epithelial Cells /LPF Urine Bacteria (NONE TO FEW) /HPF Urine Mucus (NEGATIVE) /LPF SARS-CoV-2 RNA (MAXX) Negative (NEGATIVE) SARS-CoV-2 Ag (Rapid) Negative (NEGATIVE) 02/01/21 02/01/21 Range/Units 07:20 07:20 WBC 5.2 (4.0-10.2) K/uL RBC 4.38 (4.33-5.41) M/uL Hgb 12.6 L (13.1-16.8) g/dL Hct 38.7 L (39.0-49.0) % MCV 88.4 (84.0-98.0) fL MCH 28.8 (28.2-33.3) pg MCHC 32.6 (31.7-36.0) g/dL RDW 13.7 (11.2-14.1) % Plt Count 142 L (150-350) K/uL Neut % (Auto) 56.1 (45.0-80.0) % Lymph % (Auto) 28.8 (10.0-50.0) % [place] % (Auto) 12.8 (2.0-14.0) % Eos % (Auto) 1.9 (0.0-5.0) % Baso % (Auto) 0.4 (0.0-2.0) % Neut # (Auto) 2.90 (1.40-7.00) K/uL Lymph # (Auto) 1.49 (0.50-3.50) K/uL [place] # (Auto) 0.66 (0.00-1.00) K/uL Eos # (Auto) 0.10 (0.00-0.50) K/uL Baso # (Auto) 0.02 (0.00-0.20) K/uL PT (9.5-12.0) SEC INR APTT (24.5-32.8) SEC POC VBG pH (7.31-7.41) POC VBG pCO2 (41-51) mmHg POC VBG pO2 mmHg POC VBG HCO3 (23-28) mmol/L POC Venous O2 Sat % VBG Base Excess (-(2)-3) mmol/L Sodium 140 (136-145) mmol/L Potassium 4.0 (3.5-5.1) mmol/L Chloride 105 (98-107) mmol/L Carbon Dioxide 28.2 (21.0-32.0) mmol/L POC Venous Total CO2 mmol/L Anion Gap 6.8 L (7-15) meq/L BUN 15 (7-18) mg/dL Creatinine 1.20 H (0.51-1.17) mg/dL Est Cr Clr Drug Dosing 57.45 Estimated GFR (MDRD) 60 mL/min Glucose 89 (70-99) mg/dL Lactic Acid (0.4-2.0) mmol/L Calcium 8.5 (8.5-10.1) mg/dL Total Bilirubin (0.2-1.0) mg/dL AST (15-37) U/L ALT (12-78) U/L Alkaline Phosphatase (46-116) IU/L Troponin I High Sens 20 (<=76) ng/L C-Reactive Protein (<=0.9) mg/dL Total Protein (6.4-8.2) g/dL Albumin (3.4-5.0) g/dL Specimen Type Urine Color Urine Appearance Urine pH (5.0-9.0) Ur Specific [place] (1.005-1.030) Urine Protein (NEGATIVE) mg/dL Urine Glucose (UA) (NEGATIVE) mg/dL Urine Ketones (NEGATIVE) mg/dL Urine Occult Blood (NEGATIVE) Urine Nitrite (NEGATIVE) Urine Bilirubin (NEGATIVE) Urine Urobilinogen (0.2-1.0) E.U./dL Ur Leukocyte Esterase (NEGATIVE) Urine RBC /HPF Urine WBC /HPF Ur Epithelial Cells /LPF Urine Bacteria (NONE TO FEW) /HPF Urine Mucus (NEGATIVE) /LPF SARS-CoV-2 RNA (MAXX) (NEGATIVE) SARS-CoV-2 Ag (Rapid) (NEGATIVE) Med Orders - Current: Current Medications Aspirin (Aspirin 81 Mg Tab.Ec) 81 mg PO DAILY@1800 [facility] Bupropion HCl (Bupropion 150 Mg Tab.Er) 150 mg PO NOW STA Stop: 02/01/21 09:17 Clopidogrel Bisulfate (Clopidogrel 75 Mg Tab) 75 mg PO NOW STA Stop: 02/01/21 09:17 Fish Oil (Fish Oil/[place]-3 Fatty Acids 1 Gm Cap) 2 gm PO DAILY@0700 [facility] Nicotine (Nicotine 14 Mg/24 Hr Patch) 14 mg TRDERM DAILY [facility] Last Admin: 01/31/21 22:49 Dose: 14 mg Documented by: Non-Formulary Medication (Bupropion Hcl [Wellbutrin Xl]) 300 mg PO NOW STA Stop: 02/01/21 09:17 Non-Formulary Medication (Simvastatin [Simvastatin]) 40 mg PO DAILY@1800 [facility] Non-Formulary Medication (Trazodone Hcl [Trazodone Hcl]) 150 mg PO DAILY@1800 [facility] Omeprazole (Omeprazole 20 Mg Cap.Cr) 20 mg PO NOW STA Stop: 02/01/21 09:17 Sodium Chloride (Sodium Chloride 0.9% 10 Ml Syringe) 10 ml FLUSH ASDIRECTED PRN PRN Reason: Keep Vein Open Tamsulosin HCl (Tamsulosin 0.4 Mg Cap.Er) 0.4 mg PO DAILY@1800 [facility] Discontinued Medications Ceftriaxone Sodium (Ceftriaxone 2 Gm Vial) 2 gm IVPUSH NOW STA Stop: 01/31/21 18:04 Last Admin: 01/31/21 18:26 Dose: 2 gm Documented by: Lactated Ringer's (Ringers, Lactated) 1,000 mls @ 1,000 mls/hr IV .BOLUS ONE Stop: 01/31/21 19:00 Last Admin: 01/31/21 18:03 Dose: 1,000 mls/hr Documented by: Lactated Ringer's (Ringers, Lactated) 1,000 mls @ 1,000 mls/hr IV .BOLUS ONE Stop: 01/31/21 19:01 Last Admin: 01/31/21 18:27 Dose: 1,000 mls/hr Documented by: Lactated Ringer's (Ringers, Lactated) 1,000 mls @ 75 mls/hr IV ASDIRECTED [facility] Last Admin: 01/31/21 22:49 Dose: 75 mls/hr Documented by: Lisinopril (Lisinopril 20 Mg Tab) 20 mg PO NOW STA Stop: 02/01/21 09:17 Metoprolol Succinate (Metoprolol Succinate 50 Mg Tab.Er) 50 mg PO NOW STA Stop: 02/01/21 09:17 Trazodone HCl (Trazodone 50 Mg Tab) 150 mg PO ONETIME ONE Stop: 01/31/21 22:37 Last Admin: 01/31/21 22:49 Dose: 150 mg Documented by: - Exam General: Reports: Alert, Oriented HEENT: Reports: Pupils Equal, Pupils Reactive, EOMI, Mucous Membr. Moist/[place] Neck: Reports: Supple Lungs: Reports: Clear to Auscultation, Normal Respiratory Effort Cardiovascular: Reports: Regular Rate, Regular Rhythm GI/Abdominal Exam: Normal Bowel Sounds, Soft, Non-Tender, No Distention (Male) Exam: Deferred Rectal (Males) Exam: Deferred Back Exam: Reports: Normal Inspection, Full Range of Motion Extremities: Normal Inspection, Normal Range of Motion, Non-Tender, No Pedal Edema, Normal Capillary Refill Skin: Reports: Warm, Dry, Intact Neurological: Reports: No New Focal Deficit Psy/Mental Status: Reports: Alert, Normal Affect, Normal Mood
[2021-02-01] MEDS ORDERED: Tamsulosin 0.4 MG Cap.ER PO SCH (18:00)
[2021-02-01] MEDS ORDERED: Aspirin 81 MG Tab.EC PO SCH (18:00)
[2021-02-01] MEDS ORDERED: traZODone 50 MG Tab PO SCH (18:00)
[2021-02-01] MEDS ORDERED: Simvastatin 20 MG Tab PO SCH (18:00)
[2021-02-02] MEDS ORDERED: Fish Oil/Omega-3 Fatty Acids 1 Gm Cap PO SCH (07:00)
== END 2021-02-01 11:00 ==
LOC: LL.ED 17:54 → LL.MS 20:13
PROVIDERS: ADMIT Nurse Practitioner Family; ATTEND Nurse Practitioner Family
DX: R55 Syncope and collapse (principal); E86.0 Dehydration; N18.30 Chronic kidney disease, stage 3 unspecified; F17.290 Nicotine dependence, other tobacco product, uncomplicated; R00.1 Bradycardia, unspecified; F03.90 Unspecified dementia, unspecified severity, without behavioral disturbance, psychotic disturbance, mood disturbance, and anxiety; I12.9 Hypertensive chronic kidney disease with stage 1 through stage 4 chronic kidney disease, or unspecified chronic kidney disease; I25.10 Atherosclerotic heart disease of native coronary artery without angina pectoris; K21.9 Gastro-esophageal reflux disease without esophagitis; E78.5 Hyperlipidemia, unspecified; I35.1 Nonrheumatic aortic (valve) insufficiency; I95.9 Hypotension, unspecified; N18.31 Chronic kidney disease, stage 3a; I25.5 Ischemic cardiomyopathy; Z20.822 Contact with and (suspected) exposure to COVID-19; Z79.82 Long term (current) use of aspirin; Z79.899 Other long term (current) drug therapy
CPT/HCPCS: 36415; 70450; 71045; 80048; 80053; 81001; 82803; 83605; 84145; 84484; 85025; 85610; 85730; 86140; 87040; 87426; 93005; 93010; 96374; 99217; 99220; 99285-25; A9270-GY; G0378; J0696; J7120; U0002

== ENCOUNTER 2021-02-20 14:30 | Emergency (ER) | payer OTHER, MEDICARE, MEDICAID ==
--- NOTE | 2021-02-20 15:34 | EDM.PDOC ---
ED HPI GENERAL MEDICAL PROBLEM - General Chief Complaint: Gastrointestinal Problem Stated Complaint: CONSTIPATION, HEMORRHOIDS Time Seen by Provider: 02/20/21 14:55 Source of Information: Reports: Patient, Detention Records - History of Present Illness INITIAL COMMENTS - FREE TEXT/NARRATIVE: Lex is a 70 y/o male who lives at the [facility] and he is here in the Er with constipation. He apparently started to have hard stools last night and fel very uncomfortable. He was given a Dulcolax suppository at 11am today then at 1:30pm he was given a fleets enema by the senior care nurse and he had only a small hard stool. He continued to be uncomfortable and felt like he had more BM to pass so he was sent here to the ER. - Related Data Allergies Allergy/AdvReac Type Severity Reaction Status Date / Time NSAIDS (Non-Steroidal Allergy Cannot Verified 01/31/21 18:43 Anti-Inflamma Remember Home Meds: Home Meds Acetaminophen [Tylenol Extra Strength] 1,000 mg PO BID@0700,179909/05/19 [History] Acetaminophen [Tylenol] 650 mg PO DAILY PRN 09/05/19 [History] Aspirin [Halfprin] 81 mg PO DAILY@179909/05/19 [History] Clopidogrel Bisulfate [Plavix] 75 mg PO DAILY@69909/05/19 [History] Fish Oil/Luck-3 Fatty Acids [Fish Oil 1,000 MG] 2,000 mg PO DAILY@69909/05/19 [History] Ketoconazole [Nizoral 2% Crm] 1 applic TOP ASDIRECTED PRN 09/05/19 [History] Ketoconazole [Nizoral 2% Shampoo] 1 applic TOP ASDIRECTED 09/05/19 [History] Nitroglycerin [Nitrostat] 0.4 mg SL ASDIRECTED PRN 09/05/19 [History] Omeprazole 20 mg PO DAILY@69909/05/19 [History] Sennosides/Docusate Sodium [Senna-S] 2 tab PO DAILY@179909/05/19 [History] Simvastatin 40 mg PO DAILY@179909/05/19 [History] Tamsulosin HCl [Flomax] 0.4 mg PO DAILY@179909/05/19 [History] buPROPion HCL [Wellbutrin Xl] 150 mg PO DAILY@00 09/05/19 [History] buPROPion HCL [Wellbutrin Xl] 300 mg PO DAILY@0700 09/05/19 [History] lisinopriL [Lisinopril] 20 mg PO DAILY@0700 09/05/19 [History] polyethylene glycoL 3350 [MiraLAX] 17 gm PO DAILY PRN 09/05/19 [History] traZODone HCl [Trazodone HCl] 150 mg PO DAILY@1800 09/05/19 [History] Metoprolol Succinate 50 mg PO BID@0700,1800 01/31/21 [History] Mineral Oil/Petrolatum Hy-Phl [Hydrophor Oint] 1 applic TOP ASDIRECTED 01/31/21 [History] Past Medical History HEENT History: Reports: Cataract, Impaired Vision, Macular Degeneration Other HEENT History: wears glasses Cardiovascular History: Reports: Angina, Bypass, CAD, High Cholesterol, Hypertension, DE Gastrointestinal History: Reports: Chronic Constipation, GERD Genitourinary History: Reports: BPH Musculoskeletal History: Reports: Arthritis Other Musculoskeletal History: Torticollis Neurological History: Reports: CVA, TIA Psychiatric History: Reports: Depression Other Psychiatric History: [place] Dermatologic History: Reports: Seborrheic Dermatitis - Past Surgical History HEENT Surgical History: Reports: Cataract Surgery Cardiovascular Surgical History: Reports: Coronary Artery Bypass, Other (See Carmen frey) Other Cardiovascular Surgeries/Procedures: Angioplasty Social & Family History - Caffeine Use Caffeine Use: Reports: Coffee Review of Systems - Review of Systems Review Of Systems: See Below Constitutional: Reports: No Symptoms Eyes: Reports: No Symptoms Ears: Reports: No Symptoms Nose: Reports: No Symptoms Mouth/Throat: Reports: No Symptoms Respiratory: Reports: No Symptoms Cardiovascular: Reports: No Symptoms GI/Abdominal: Reports: Constipation Genitourinary: Reports: No Symptoms Musculoskeletal: Reports: No Symptoms Skin: Reports: No Symptoms Neurological: Reports: No Symptoms Psychiatric: Reports: No Symptoms ED EXAM, GENERAL - Physical Exam Exam: See Below General Appearance: Alert, WD/WN (Elderly male, sitting in wheelchair) Ears: Hearing Grossly Normal Throat/Mouth: Normal Voice Head: Atraumatic, Normocephalic Respiratory/Chest: No Respiratory Distress, Lungs Clear Cardiovascular: Regular Rate, Rhythm GI/Abdominal: Normal Bowel Sounds, Soft, Non-Tender, No Distention (Male) Exam: Deferred Rectal (Males) Exam: Deferred Extremities: No Pedal Edema Neurological: Alert, Oriented, CN II-XII Intact, Normal Cognition Psychiatric: Normal Affect Skin Exam: Warm, Dry, Intact, Normal Color Course - Vital Signs Text/Narrative:: Prior to [employer] 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 He reported complete relief of his symptoms. Xray of his abdomen as initially ordered, but then cancelled since he no longer with uncomfortable and went to the bathroom with good results. Suspect he just need more time for the suppository and the enema to work. Instructions given and the patient left the ER in stable condition. Last Recorded V/S: Last Vital Signs Temp 36.0 C L 02/20/21 14:32 Pulse 64 02/20/21 14:32 Resp 20 02/20/21 14:32 BP 134/67 02/20/21 14:32 Pulse Ox 100 02/20/21 14:32 - Orders/Labs/Meds Orders: Active Orders 24 hr Category Date Time Status Abdomen 2V AP Flat Upright [CR] Stat Exams 02/20/21 14:56 Ordered Departure - Departure Time of Disposition: 15:34 Disposition: DC/Tfer to SNF 03 Condition: Good Clinical Impression: Constipation Qualifiers: Constipation type: unspecified constipation type Qualified Code(s): K59.00 - Constipation, unspecified - Discharge Information Instructions: Constipation, Adult Additional Instructions: -Resume all senior care meds -Discuss stool softner or other PRN meds with PCP -Return to ER as needed Sepsis Event Note (ED) - Evaluation Sepsis Screening Result: No Definite Risk - Focused Exam Vital Signs: Vital Signs Temp Pulse Resp BP Pulse Ox 02/20/21 14:32 36.0 C L 64 20 134/67 100 - My Orders Last 24 Hours: My Active Orders 02/20/21 14:56 Abdomen 2V AP Flat Upright [CR] Stat - Assessment/Plan Last 24 Hours: My Active Orders 02/20/21 14:56 Abdomen 2V AP Flat Upright [CR] Stat
== END 2021-02-20 16:00 ==
LOC: LL.ED 14:30
DX: K59.00 Constipation, unspecified (principal); N40.0 Benign prostatic hyperplasia without lower urinary tract symptoms; I25.119 Atherosclerotic heart disease of native coronary artery with unspecified angina pectoris; E78.00 Pure hypercholesterolemia, unspecified; I10 Essential (primary) hypertension; I25.2 Old myocardial infarction; K21.9 Gastro-esophageal reflux disease without esophagitis; Z88.8 Allergy status to other drugs, medicaments and biological substances; Z79.82 Long term (current) use of aspirin; Z79.899 Other long term (current) drug therapy; Z95.1 Presence of aortocoronary bypass graft; Z86.73 Personal history of transient ischemic attack (TIA), and cerebral infarction without residual deficits
CPT/HCPCS: 99283

== ENCOUNTER 2023-05-09 20:43 | Emergency (ER) | payer OTHER, MEDICARE, MEDICAID | END 2023-05-09 21:30 | LOC: LL.ED 20:43 | DX: S49.92XA Unspecified injury of left shoulder and upper arm, initial encounter (principal); I10 Essential (primary) hypertension; I25.2 Old myocardial infarction; I25.810 Atherosclerosis of coronary artery bypass graft(s) without angina pectoris; K21.9 Gastro-esophageal reflux disease without esophagitis; E78.00 Pure hypercholesterolemia, unspecified; Z88.8 Allergy status to other drugs, medicaments and biological substances; Z79.82 Long term (current) use of aspirin; Z79.899 Other long term (current) drug therapy; W19.XXXA Unspecified fall, initial encounter | CPT/HCPCS: 73100-LT; 99284 ==

== ENCOUNTER 2024-01-02 07:43 | Emergency (ER) | payer OTHER, MEDICARE ==
[2024-01-02] MEDS: Lactated Ringers 1,000 ML IV ONE (08:12)
[2024-01-02 08:23] LABS: BASOPHILS ABSOLUTE AUTO 0.02 K/uL (0.00-0.20); BASOPHILS PERCENT AUTO 0.1 % (0.0-2.0); EOSINOPHILS ABSOLUTE AUTO 0.01 K/uL (0.00-0.50); EOSINOPHILS PERCENT AUTO 0.1 % (0.0-5.0); HEMATOCRIT 47.7 % (39.0-49.0); HEMOGLOBIN 15.5 g/dL (13.1-16.8); LYMPHOCYTES ABSOLUTE AUTO 0.83 K/uL (0.50-3.50); LYMPHOCYTES PERCENT AUTO 4.9 % (10.0-50.0); MEAN CORPUSCULAR HEMOGLOBIN 29.2 pg (28.2-33.3); MEAN CORPUSCULAR HGB CONC 32.5 g/dL (31.7-36.0); MONOCYTES ABSOLUTE AUTO 1.15 K/uL (0.00-1.00); MONOCYTES PERCENT AUTO 6.8 % (2.0-14.0); NEUTROPHILS ABSOLUTE AUTO 14.88 K/uL (1.40-7.00); NEUTROPHILS PERCENT AUTO 88.1 % (45.0-80.0); PLATELET COUNT,PLT 166 K/uL (150-350); RED CELL DISTRIBUTION WIDTH 14.6 % (11.2-14.1); WHITE BLOOD CELL COUNT,WBC 16.9 K/uL (4.0-10.2)
[2024-01-02] MEDS: Lidocaine 2% HCl 11 ML Jelly Filled Syringe TOP ONE (08:26)
[2024-01-02] MEDS: Lidocaine 2% HCl 11 ML Jelly Filled Syringe ONE (08:27)
[2024-01-02 08:35] LABS: INR 1.1 (0.9-1.1); PROTHROMBIN TIME 10.8 SEC (9.0-11.1)
[2024-01-02 08:40] LABS: APPEARANCE,URINE CLEAR; BILIRUBIN,URINE NEGATIVE (NEGATIVE); COLOR,URINE YELLOW; GLUCOSE,URINE >=1000 mg/dL (NEGATIVE); KETONES,URINE NEGATIVE (NEGATIVE); LEUKOCYTE ESTERASE,URINE NEGATIVE (NEGATIVE); NITRITE,URINE NEGATIVE (NEGATIVE); OCCULT BLOOD,URINE TRACE-LYSED (NEGATIVE); PROTEIN,URINE NEGATIVE (NEGATIVE); UROBILINOGEN,URINE 0.2 E.U./dL (0.2-1.0)
[2024-01-02] MEDS: fentaNYL 50 MCG/ML SDV IVPUSH ONE (08:46)
[2024-01-02 08:48] LABS: BACTERIA,URINE RARE /HPF (NONE TO FEW); EPITHELIAL CELLS,URINE MODERATE /LPF; WBC,URINE 0-5 /HPF
[2024-01-02] MEDS: Lactated Ringers 1,000 ML IV SCH (09:00)
[2024-01-02] MEDS: Sodium Chloride 0.9% 10 ML Syringe FLUSH PRN (09:04)
[2024-01-02] MEDS: LORazepam 2 MG/ML SDV IVPUSH ONE ×2 (09:04→09:45)
[2024-01-02 09:05] LABS: ALANINE AMINOTRANSFERASE,ALT 24 U/L (12-78); ALBUMIN 3.7 g/dL (3.4-5.0); ALKALINE PHOSPHATASE 78 IU/L (46-116); ANION GAP 7.8 meq/L (7-15); ASPARTATE AMNIOTRANSFERASE,AST 16 U/L (15-37); BILIRUBIN TOTAL 0.7 mg/dL (0.2-1.0); BLOOD UREA NITROGEN,BUN 25 mg/dL (7-18); CALCIUM 9.5 mg/dL (8.5-10.1); CARBON DIOXIDE,CO2 27.2 mmol/L (21.0-32.0); CHLORIDE,CL 105 mmol/L (98-107); CREATINE KINASE,CK 58 U/L (26-308); CREATININE 1.56 mg/dL (0.51-1.17); ESTIMATED GFR 46 mL/min (>=60); GLUCOSE RANDOM 138 mg/dL (70-99); MAGNESIUM 1.8 mg/dL (1.8-2.4); POTASSIUM,K 4.4 mmol/L (3.5-5.1); PRO B-TYPE NATRIUR PEPT,BNPPRO 1249 pg/mL (0-125); PROTEIN TOTAL,TP 7.8 g/dL (6.4-8.2); SODIUM,NA 140 mmol/L (136-145)
[2024-01-02 09:09] LABS: CORONAVIRUS COVID-19 NAA NEGATIVE (NEGATIVE); INFLUENZA A NAA NEGATIVE (NEGATIVE); INFLUENZA B NAA NEGATIVE (NEGATIVE); RESPIRATORY SYNCYTIAL VIR NAA NEGATIVE (NEGATIVE)
[2024-01-02] MEDS: Cefepime 2 GM Vial IVPUSH ONE (09:44)
[2024-01-02] MEDS: Haloperidol Lactate 5 MG/ML SDV IVPUSH ONE ×2 (09:49→12:07)
[2024-01-02] MEDS ORDERED: Sodium Chloride 0.9% 10 ML Syringe FLUSH PRN (10:01)
[2024-01-02] MEDS: VANCOmycin 1.5 GM/300 ML 1.5 GM in Premix Bag 1 BAG IV ONE (10:07)
[2024-01-02] MEDS: LORazepam 2 MG/ML SDV ONE ×2 (10:17)
[2024-01-02] MEDS: fentaNYL 50 MCG/ML SDV ONE (10:17)
== END 2024-01-02 12:28 ==
LOC: LL.ED 07:43
DX: A41.9 Sepsis, unspecified organism (principal); R65.20 Severe sepsis without septic shock; G93.41 Metabolic encephalopathy; J18.9 Pneumonia, unspecified organism; R41.82 Altered mental status, unspecified; R79.0 Abnormal level of blood mineral; I25.10 Atherosclerotic heart disease of native coronary artery without angina pectoris; E78.00 Pure hypercholesterolemia, unspecified; I10 Essential (primary) hypertension; I25.2 Old myocardial infarction; K21.9 Gastro-esophageal reflux disease without esophagitis; Z86.73 Personal history of transient ischemic attack (TIA), and cerebral infarction without residual deficits; Z79.82 Long term (current) use of aspirin; Z79.899 Other long term (current) drug therapy; Z88.6 Allergy status to analgesic agent
CPT/HCPCS: 0241U; 36415; 51702; 70450; 71045; 71250; 72192; 73522; 80053; 81001; 82550; 82947; 83605; 83735; 83880; 84484; 85025; 85610; 87040; 93005; 93010; 96361; 96365; 96366; 96375; 96376; 99284; 99285; A9270; J0692; J1630; J2060; J3010; J3372; J7120; J3490

== ENCOUNTER 2025-01-17 11:53 | Emergency (ER) | payer OTHER, MEDICARE ==
[2025-01-17 12:19] LABS: BASOPHILS ABSOLUTE AUTO 0.03 K/uL (0.00-0.20); BASOPHILS PERCENT AUTO 0.4 % (0.0-2.0); EOSINOPHILS ABSOLUTE AUTO 0.16 K/uL (0.00-0.50); EOSINOPHILS PERCENT AUTO 2.1 % (0.0-5.0); IMMATURE GRAN ABSOLUTE AUTO 0.03 10^3/uL (0.00-0.04); IMMATURE GRAN PERCENT AUTO 0.4 % (0.0-0.4); LYMPHOCYTES ABSOLUTE AUTO 2.30 K/uL (0.50-3.50); LYMPHOCYTES PERCENT AUTO 30.5 % (10.0-50.0); MONOCYTES ABSOLUTE AUTO 0.76 K/uL (0.00-1.00); MONOCYTES PERCENT AUTO 10.1 % (2.0-14.0); NEUTROPHILS ABSOLUTE AUTO 4.25 K/uL (1.40-7.00); NEUTROPHILS PERCENT AUTO 56.5 % (45.0-80.0); PLATELET COUNT,PLT 147 K/uL (150-350); RED BLOOD CELL COUNT 5.05 M/uL (4.33-5.41); RED CELL DISTRIBUTION WIDTH 14.6 % (11.2-14.1); WHITE BLOOD CELL COUNT,WBC 7.5 K/uL (4.0-10.2)
[2025-01-17 12:48] LABS: ALANINE AMINOTRANSFERASE,ALT 17 U/L (12-78); ASPARTATE AMNIOTRANSFERASE,AST 11 U/L (15-37); BILIRUBIN TOTAL 0.4 mg/dL (0.2-1.0); BLOOD UREA NITROGEN,BUN 23 mg/dL (7-18); CARBON DIOXIDE,CO2 35.5 mmol/L (21.0-32.0); CHLORIDE,CL 103 mmol/L (98-107); CREATININE 1.64 mg/dL (0.51-1.17); GLUCOSE RANDOM 110 mg/dL (70-99); POTASSIUM,K 4.1 mmol/L (3.5-5.1); PROTEIN TOTAL,TP 6.9 g/dL (6.4-8.2); SODIUM,NA 144 mmol/L (136-145)
[2025-01-17 12:51] LABS: ESTIMATED GFR 43 mL/min (>=60)
[2025-01-17 14:00] LABS: APPEARANCE,URINE CLOUDY (CLEAR); GLUCOSE,URINE NEGATIVE (NEGATIVE); OCCULT BLOOD,URINE LARGE (NEGATIVE)
== END 2025-01-17 13:40 ==
LOC: LL.ED 11:53
DX: R31.9 Hematuria, unspecified (principal); F03.90 Unspecified dementia, unspecified severity, without behavioral disturbance, psychotic disturbance, mood disturbance, and anxiety; I10 Essential (primary) hypertension; E78.00 Pure hypercholesterolemia, unspecified; I25.10 Atherosclerotic heart disease of native coronary artery without angina pectoris; K21.9 Gastro-esophageal reflux disease without esophagitis; Z88.8 Allergy status to other drugs, medicaments and biological substances; Z79.899 Other long term (current) drug therapy; Z87.891 Personal history of nicotine dependence
CPT/HCPCS: 36415; 80053; 81001; 85025; 99284